=== PATIENT | female | born 2000 | race Caucasian/White ===

== ENCOUNTER 2019-08-18 23:38 | Emergency (ER) | payer OTHER, SELFPAY ==
[2019-08-19 00:01] VITALS: BP 114/77; PULSE 74; RESP 16; TEMP 36.5; O2SAT 100; BMI 29.9
--- NOTE | 2019-08-19 00:01 | PC.NURSE ---
Pt in [place], laughing with friends.
[2019-08-19] MEDS: ACETAMINOPHEN 325 MG TABLET 975 MG PO (01:00)
--- NOTE | 2019-08-19 01:03 | ED.HA ---
HPI - Headache General Chief Complaint: Headache Stated Complaint: migraine Time Seen by Provider: 08/19/19 01:17 Source: patient Mode of arrival: Ambulatory Limitations: no limitations History of Present Illness HPI Narrative: 19-year-old female comes emergency department with complaint of migraine. Patient states she has had migraines on and off over the years. This is not the worst migraine she has ever had. She states it does fit her typical pattern. She states she has been stressed recently she started a new job, she is taking finals and working 40 hours a week and trying to support herself. She states today when she walked in to work there were a lot of strong smells from the housekeeping office and she had a very mild headache that seemed to be triggered by the smells. She has felt slightly nauseated but with no vomiting. She denies any fevers. No vision changes. No numbness, no tingling, no weakness or focal neurologic deficits. Patient has not had any issues with diarrhea or constipation. No shortness of breath or chest pain. She tried ibuprofen 100 mg home, drinking some caffeine and taking a nap but was unsuccessful. Patient did have a tylenol while in the waiting room. She states she takes iron daily but no other medical history. Related Data Previous Rx's Medication Instructions Recorded azithromycin [Zithromax Z-Bethel] 0 tab PO QDAY #6 tab 06/05/16 Allergies Allergy/AdvReac Type Severity Reaction Status Date / Time Penicillins Allergy Verified 08/19/19 00:01 Review of Systems Review of Systems ROS Unobtainable: All systems reviewed & are unremarkable except as noted in HPI and below Patient History Social History Smoking Status: Never smoker Smoking Status: Never smoker Substance Use Type: does not use Exam Narrative Exam Narrative: GEN: well nourished, well appearing female, alert and oriented x 3, patient appears to be in mild distress. Patient is able to sit up on the bed without issue, she is able to sit with her legs crossed and peers fairly comfortable. HEENT: Atraumatic, pupils are equal round reactive to light, extraocular movements are intact, no photophobia, nares are clear, TMs are clear with no fluid, there is no conjunctival pallor. Throat is clear without any exudates, erythema, tonsillar enlargement or uvular deviation, no meningeal signs. HEART: Regular rate and rhythm without murmur, clicks, rubs. LUNGS:Lungs clear to auscultation, no wheezes, rales, crackles, chest moves symmetrically ABD:bowel sounds normal, soft, non-tender, no guarding, rebound, rigidity, no masses noted, no hepatosplenomegaly MSCL: Non-tender, no muscle atrophy, muscles strength 5/5 upper and lower extremities, full range of motion, normal gait NEURO:CN 2-12 intact, sensation normal SKIN: No rash, no petechiae. Initial Vital Signs Initial Vital Signs: Vital Signs Temperature 97.7 F 08/19/19 00:01 Pulse Rate 74 08/19/19 00:01 Respiratory Rate 16 08/19/19 00:01 Blood Pressure 114/77 08/19/19 00:01 Pulse Oximetry 100 08/19/19 00:01 Course Orders Ordered: Discontinued Medications Acetaminophen (Tylenol) 975 mg PO NOW ONE Stop: 08/19/19 00:40 Last Admin: 08/19/19 01:00 Dose: 975 mg Documented by: YAIMA Ketorolac Tromethamine (Toradol) 30 mg IM NOW ONE Stop: 08/19/19 01:27 Last Admin: 08/19/19 01:39 Dose: 30 mg Documented by: YAIMA Metoclopramide HCl (Reglan) 10 mg PO NOW ONE Stop: 08/19/19 01:27 Last Admin: 08/19/19 01:39 Dose: 10 mg Documented by: YAIMA Vital Signs Vital signs: Vital Signs - 8 hr 08/19/19 00:01 08/19/19 02:07 08/19/19 02:08 Temperature 97.7 F 98.4 F Pulse Rate 74 78 76 Respiratory Rate 16 16 16 Blood Pressure 114/77 119/57 L Blood Pressure [Left Arm] 119/57 L Pulse Oximetry 100 100 100 MDM - Headache Lab Data Attestation: I reviewed the patient's lab results. Labs: Point of Care Testing Test Results Negative MDM Narrative Medical decision making narrative: recheck after medications, patient is feeling improved. Patient is laughing and joking with friends. Discharge Plan Departure Patient Disposition: Home Clinical Impression: Migraine Discharge Date/Time: 08/19/19 02:05 Instructions: DI for Migraine Activity Restrictions/Additional Instructions: Follow-up with your primary care provider in the next week for recheck. Try to make sure your getting plenty of sleep, getting plenty of hydration this week. Return to the ER for fevers greater 100.4 F, sudden severe headaches, vision changes, new weakness, numbness, difficulty with speech, difficulty with movement, new chest pain, shortness of breath or other new or concerning symptoms. Prescriptions: No Action azithromycin [Zithromax Z-Bethel] 250 MG tablet 0 tab PO QDAY Qty: 6 RF: 0
[2019-08-19] MEDS: METOCLOPRAMIDE HCL 10 MG TABLET PO (01:39)
[2019-08-19] MEDS: KETOROLAC 60 MG/2 ML VIAL 30 MG IM (01:39)
--- NOTE | 2019-08-19 01:58 | PC.NURSE ---
Prior to ketorolac and metoclopromide, pt sitting upright in stretcher, looking at cell phone, laughing.
[2019-08-19 02:07] VITALS: BP 119/57; PULSE 78; RESP 16; O2SAT 100
[2019-08-19 02:08] VITALS: BP 119/57; PULSE 76; RESP 16; TEMP 36.9; O2SAT 100
== END 2019-08-19 02:05 | disposition home or self-care (01) ==
PROVIDERS: Emergency Provider Emergency Medicine
DX: G43.909 Migraine, unspecified, not intractable, without status migrainosus (principal)
CPT/HCPCS: 81025; 96372; 99281; 99283; J1885